=== PATIENT | female | born 1945 | race Caucasian/White ===

== ENCOUNTER 2019-05-27 19:58 | Emergency (ER) | payer MEDICARE, BC, OTHER ==
[2019-05-27 20:12] VITALS: BP 137/86
--- NOTE | 2019-05-27 20:14 | UC ---
Abdominal Pain Female HPI - HPI Summary HPI Summary: 74 yo female presents with abdominal pain, nausea, and vomiting. She tells me that on 05/25 she had 2 episodes of vomiting without any other symptoms. Yesterday 05/26 she felt "bad" all day and had some nausea and generalized abdominal discomfort. This morning she woke around 0800 and noticed epigastric pain with significant nausea. She has had at least 10 episodes of vomiting today. She has tried to eat toast, but vomiting. She tried to drink estefany selene and water, but vomiting both of these. Since that time she has not been able to eat or drink. She notes that she finished 3 weeks of doxycycline about 1 week ago for lyme disease - had no symptoms or GI upset during that time. She mentions that she has a history of gastric ulcer and is on intermediate card tender prilosec for this. - History of Current Complaint Chief Complaint: UCAbdominalPain Stated Complaint: NAUSEA, VOMITING Time Seen by Provider: 05/27/19 20:13 Hx Obtained From: Patient Onset/Duration: Sudden Onset Severity Initially: Moderate Severity Currently: Moderate Pain Intensity: 5 Pain Scale Used: 0-10 Numeric Allergies/Adverse Reactions: Allergies Allergy/AdvReac Type Severity Reaction Status Date / Time procaine Allergy See Comment Verified 05/27/19 20:12 Home Medications: Home Medications Cannabidiol (Cbd) Extract [Epidiolex] 1,000 mg PO DAILY 05/27/19 [History Confirmed 05/27/19] PMH/Surg Hx/FS Hx/Imm Hx - Additional Past Medical History Additional PMH: Lyme disease Cardiovascular History: Hypertension GI/ History: Gastroesophageal Reflux - Surgical History Surgical History: Yes Surgery Procedure, Year, and Place: PARTIAL HYSTERECTOMY, - Social History Lives: With Family Alcohol Use: Occasionally Substance Use Type: None Smoking Status (MU): Never Smoked Tobacco Have You Smoked in the Last Year: No Review of Systems All Other Systems Reviewed And Are Negative: Yes Constitutional: Positive: Negative Skin: Positive: Negative Eyes: Positive: Negative ENT: Positive: Negative Respiratory: Positive: Negative Cardiovascular: Positive: Negative Gastrointestinal: Positive: Abdominal Pain, Vomiting, Nausea Genitourinary: Positive: Negative Neurovascular: Positive: Negative Neurological: Positive: Negative Psychological: Positive: Negative Physical Exam - Summary Physical Exam Summary: GENERAL: Vomiting. SKIN: No rashes, sores, lesions, or open wounds. NECK: Supple. Nontender. No lymphadenopathy. CHEST: CTAB. No r/r/w. No accessory muscle use. Breathing comfortably and in no distress. CV: Tachycardic. Without m/r/g. Pulses intact. Cap refill <2seconds ABDOMEN: TTP epigastric area. Negative short sign. Soft. No distention or guarding. No CVA tenderness. Bowel sounds present NEURO: Alert. PSYCH: Age appropriate behavior. Triage Information Reviewed: Yes Vital Signs: Initial Vital Signs Temp 98.8 F 05/27/19 20:08 Pulse 112 05/27/19 20:08 Resp 18 05/27/19 20:08 BP 137/86 05/27/19 20:08 Pulse Ox 99 05/27/19 20:08 Vital Signs Reviewed: Yes Abd Pain Female Course/Dx - Course Course Of Treatment: UA with ketones. Given her abdominal pain, vomiting, inability to tolerate po, and tachycardia in the clinic - I recommended pt be further evaluated in the ED. She was agreeable to this and will have her drive her. She was given zofran SL in the clinic for her nausea prior to discharge - Differential Dx/Diagnosis Provider Diagnosis: Epigastric pain, Vomiting Discharge - Sign-Out/Discharge Documenting (check all that apply): Patient Departure All imaging exams completed and their final reports reviewed: No Studies - Discharge Plan Condition: Stable Disposition: HOME-RECOMMEND TO ED Referrals: Geno Martino [employer]IE[employer] DOG LICENSE INSPECTOR [Primary Care Provider] - Additional Instructions: Please go to the ER for further evaluation of your abdominal pain and vomiting - Billing Disposition and Condition Condition: STABLE Disposition: Home-Recommend to ED - Attestation Statements Provider Attestation: I was available for consult. This patient was seen by the YONG. The patient was not presented to, seen by, or examined by me. -Td
[2019-05-27] MEDS ORDERED: Ondansetron ODT TAB* 4 MG SL ONE (20:23)
== END 2019-05-27 20:40 | disposition home health service (06) ==
LOC: UCEAST 19:58
DX: R11.2 Nausea with vomiting, unspecified (principal); R10.13 Epigastric pain; I10 Essential (primary) hypertension; K21.9 Gastro-esophageal reflux disease without esophagitis
CPT/HCPCS: 36415; 76705; 80053; 81002; 82150; 83690; 85025; 85610; 85730; 86140; 93005; 99212; 99283; A9270-GY; G0463